=== PATIENT | male | born 1935 | race African-American/Black ===

== ENCOUNTER 2018-08-09 11:03 | Emergency (ER) | payer MEDICARE, OTHER, MEDICAID ==
[~2018-08-09] VITALS: Ht 177.8 cm; Wt 74.0 kg
[2018-08-09 11:53] LABS: BASOPHILS % 0.5 % (0.0-2.0); EOSINOPHILS % 1.2 % (0.0-5.0); HEMATOCRIT. 41.2 % (42.0-52.0); LYMPHOCYTES % 47.7 % (20.0-50.0); MEAN CORPUSCULAR HEMOGLOBIN 32.3 pg (28.0-32.0); MEAN CORPUSCULAR VOLUME 95.3 fL (80.0-94.0); MEAN PLATELET VOLUME 9.6 fl (7.4-10.4); MONOCYTES % 10.2 % (2.0-8.0); NEUTROPHILS % 40.4 % (40.0-76.0); PLATELET 123 x1000/uL (130-400); RED BLOOD CELL COUNT 4.32 mill/uL (4.7-6.1); RED CELL DISTRIBUTION WIDTH 12.8 % (11.6-14.6)
[2018-08-09 11:57] LABS: CHLORIDE 109 mEq/L (98-107)
[2018-08-09 13:40] VITALS: BP 176/81
== END 2018-08-09 14:21 | disposition home or self-care (01) ==
LOC: ER 11:03
DX: R55 Syncope and collapse (principal); I10 Essential (primary) hypertension
CPT/HCPCS: 36415; 71045; 84484; 93005; 99284